=== PATIENT | male | born 1975 ===

== ENCOUNTER 2017-07-28 14:56 | Outpatient (CLI) | payer OTHER | END 2017-07-28 14:57 | disposition home or self-care (01) | LOC: LAB 14:56 | PROVIDERS: ATTEND Family Medicine | DX: Z11.4 Encounter for screening for human immunodeficiency virus [HIV] (principal) | CPT/HCPCS: 36415; 87806 ==

== ENCOUNTER 2018-01-04 10:07 | Emergency (ER) | payer OTHER ==
[2018-01-04 10:29] VITALS: BP 119/83
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
== END 2018-01-04 11:40 | disposition home or self-care (01) ==
LOC: ED 10:07
DX: S39.012A Strain of muscle, fascia and tendon of lower back, initial encounter (principal); V89.2XXA Person injured in unspecified motor-vehicle accident, traffic, initial encounter; Y93.89 Activity, other specified; Y92.89 Other specified places as the place of occurrence of the external cause; Y99.8 Other external cause status
CPT/HCPCS: 99281